=== PATIENT | male | born 1960 | race Caucasian/White ===

== ENCOUNTER 2024-08-18 08:45 | Outpatient (CLI) | payer OTHER | END 2024-08-18 08:46 | disposition home or self-care (01) | LOC: PET 08:45 | PROVIDERS: ATTEND Internal Medicine | DX: R91.8 Other nonspecific abnormal finding of lung field (principal); R59.0 Localized enlarged lymph nodes | CPT/HCPCS: 78815; A9552 ==

== ENCOUNTER 2024-08-20 14:02 | Emergency (ER) | payer OTHER | END 2024-08-20 16:25 | disposition home or self-care (01) | LOC: ERS 14:02 | DX: R04.2 Hemoptysis (principal); C34.90 Malignant neoplasm of unspecified part of unspecified bronchus or lung; I25.2 Old myocardial infarction; I10 Essential (primary) hypertension; J44.9 Chronic obstructive pulmonary disease, unspecified; F17.210 Nicotine dependence, cigarettes, uncomplicated | CPT/HCPCS: 99284 ==

== ENCOUNTER 2024-08-22 09:56 | Day surgery (SDC) | payer OTHER ==
[2024-08-21 11:12] VITALS: BMI 23.0
[2024-08-22] MEDS ORDERED: Lidocaine 4% PF 5 ML AMP ONE (11:39)
[2024-08-22] MEDS ORDERED: Albuterol 2.5 MG (3 mL) NEB ONE (11:41)
[2024-08-22] MEDS ORDERED: Ipratropium/Albuterol 3 ML NEB ONE (11:41)
[2024-08-22] MEDS ORDERED: Ipratropium Bromide 2.5 ml Neb ONE (11:42)
[2024-08-22] MEDS ORDERED: Propofol 1,000 MG/100 ML VIAL IV ONE (11:55)
[2024-08-22] MEDS ORDERED: fentaNYL PF 100 MCG/2 ML SYRINGE ONE (12:07)
[2024-08-22] MEDS ORDERED: Midazolam HCl 2 mg/2 ml Vial ONE (12:08)
[2024-08-22] MEDS ORDERED: Rocuronium Bromide 10 MG/ML (10ML VIAL) ONE (12:08)
[2024-08-22] MEDS ORDERED: Lidocaine 1% PF 5 ML VIAL ONE (12:08)
[2024-08-22] MEDS ORDERED: PROPOFOL 20 ML ONE (12:08)
[2024-08-22] MEDS ORDERED: Tranexamic Acid 1,000 MG/10 ML VIAL FS SCH (12:30)
[2024-08-22] MEDS ORDERED: Dexamethasone 4 mg/ml Vial ONE (12:50)
[2024-08-22] MEDS ORDERED: SUGAMMADEX SODIUM 200 MG/2 ML VIAL ONE (12:50)
[2024-08-22] MEDS ORDERED: Ondansetron PF 4 MG/2 ML Vial ONE (12:50)
[2024-08-22] MEDS ORDERED: PHENYLEPHRINE-NS 100 MCG/ML 10 ML SYRINGE ONE ×2 (12:58→14:21)
== END 2024-08-22 16:33 | disposition home or self-care (01) ==
LOC: SDC 09:56
PROVIDERS: ATTEND Internal Medicine
PROC: 0B9G8ZX Drainage of Left Upper Lung Lobe, Via Natural or Artificial Opening Endoscopic, Diagnostic (ICD-10-PCS; principal; 2024-08-22)
PROC: 0BB88ZX Excision of Left Upper Lobe Bronchus, Via Natural or Artificial Opening Endoscopic, Diagnostic (ICD-10-PCS; principal; 2024-08-22)
DX: R91.8 Other nonspecific abnormal finding of lung field (principal); R59.9 Enlarged lymph nodes, unspecified; K00-K95 Diseases of the digestive system; I25.10 Atherosclerotic heart disease of native coronary artery without angina pectoris; E78.5 Hyperlipidemia, unspecified; Z87.891 Personal history of nicotine dependence; Z20.822 Contact with and (suspected) exposure to COVID-19
CPT/HCPCS: 87070; 87102; 87116; 87205; 87206; 88112; 88173; 88305; 88342; J1100; J2250; J2405; J2704; J7611; J7620; J7644

== ENCOUNTER 2024-09-12 16:12 | Inpatient (IN) | payer OTHER ==
[2024-09-12 17:12] LABS: Hematocrit 28.3 % (42.0-52.0); Hemoglobin 9.5 g/dL (14.0-18.0); Mean Corpuscular HGB CONC 33.6 g/dL (32.0-36.0); Mean Corpuscular Hemoglobin 29.7 pg (27.0-31.0); Mean Corpuscular Volume 88.4 fL (78.0-98.0); Mean Platelet Volume 8.9 fL (7.4-10.4); Platelet Count 609 10x3/uL (130-400); RBC Distribution Width 13.5 % (11.5-14.5)
[2024-09-12 17:29] LABS: ALT (SGPT) 13 U/L (8-55); AST (SGOT) 18 U/L (5-34); Albumin 2.6 g/dL (3.4-4.8); Alkaline Phosphatase 83 U/L (40-110); Anion Gap 13 mmol/L (10-20); BUN (Urea Nitrogen) 23 mg/dL (8.4-25.7); Bilirubin, Total 0.7 mg/dL (0.2-1.2); Calc. Creatinine Clearance 0 mL/min (70-130); Calcium 11.3 mg/dL (7.8-10.44); Carbon Dioxide 23 mmol/L (23-31); Chloride 100 mmol/L (98-107); Estimated GFR 58; Globulin 4.6 g/dL (2.4-3.5); Glucose 109 mg/dL (80-115); Magnesium 1.9 mg/dL (1.6-2.6); Potassium 4.3 mmol/L (3.5-5.1); Protein, Total 7.2 g/dL (5.8-8.1); Sodium 132 mmol/L (136-145)
[2024-09-12 17:31] LABS: Anisocytosis SLIGHT = 6-15 cells HPF (0-5); Band 5 % (5-11); Lymphocytes 2 % (21-51); Microcytosis SLIGHT = 6-15 cells HPF (0-5); Monocytes 8 % (0-10); Neutrophil 83 % (42-75); Ovalocytes SLIGHT = 2-5 cells HPF (0-1); Platelet Adequacy Comment Platelets Increased; Polychromasia SLIGHT = 2-3 cells HPF (0-2); Reactive Lymphocytes 2 % (0-10); Target Cells SLIGHT = 2-5 cells HPF (0-1); Vacuoles SLIGHT
[2024-09-12 17:49] LABS: Troponin I Less than 0.010 ng/mL (< 0.028)
[2024-09-12] MEDS ORDERED: Sodium Chloride 0.9% 100 ML ONE (18:18)
[2024-09-12] MEDS ORDERED: Cefepime 2 GM VIAL ONE (18:18)
[2024-09-12] MEDS ORDERED: Calcium Carbonate 500 MG ChewTAB PO PRN (19:00)
[2024-09-12] MEDS ORDERED: Ondansetron PF 4 MG/2 ML Vial IVP PRN (19:00)
[2024-09-12 20:20] VITALS: BMI 22.9
[2024-09-12] MEDS: Sodium Chloride 0.9% 1,000 ML IV SCH (21:28)
[2024-09-12] MEDS: Primidone 250 MG TAB PO SCH (21:29)
[2024-09-12] MEDS: Propranolol 60 MG TAB PO SCH (22:11)
[2024-09-12] MEDS: Vancomycin (BATCH) 2 GM in Premix 1 BAG IVPB SCH (23:18)
[2024-09-13 02:59] LABS: Legionella Urinary Ag Negative (Negative); Strep pneumo Urine Ag NEGATIVE (NEGATIVE)
[2024-09-13 05:28] LABS: #Basophils 0.14 10x3/uL (0.0-0.2); %Basophils 0.6 % (0.0-1.0); %Lymphocytes 9.5 % (21.0-51.0); %Monocytes 7.5 % (0.0-10.0); %Neutrophils 78.3 % (42.0-75.0); Hemoglobin 7.8 g/dL (14.0-18.0); Mean Corpuscular HGB CONC 32.5 g/dL (32.0-36.0); Mean Corpuscular Hemoglobin 29.7 pg (27.0-31.0); Mean Corpuscular Volume 91.3 fL (78.0-98.0); Platelet Count 558 10x3/uL (130-400); RBC Distribution Width 13.7 % (11.5-14.5); Red Blood Cell (RBC) Count 2.63 mill/uL (4.70-6.10)
[2024-09-13 05:43] LABS: ALT (SGPT) 8 U/L (8-55); AST (SGOT) 10 U/L (5-34); Albumin 2.1 g/dL (3.4-4.8); Alkaline Phosphatase 66 U/L (40-110); Anion Gap 10 mmol/L (10-20); BUN (Urea Nitrogen) 24 mg/dL (8.4-25.7); Bilirubin, Total 0.4 mg/dL (0.2-1.2); Calc. Creatinine Clearance 72 mL/min (70-130); Carbon Dioxide 24 mmol/L (23-31); Chloride 104 mmol/L (98-107); Estimated GFR 71; Globulin 3.6 g/dL (2.4-3.5); Glucose 109 mg/dL (80-115); Potassium 4.3 mmol/L (3.5-5.1); Protein, Total 5.7 g/dL (5.8-8.1); Sodium 134 mmol/L (136-145)
[2024-09-13 07:39] LABS: Vancomycin, Random 33.3 ug/mL (See Comment)
[2024-09-13] MEDS: Clopidogrel Bisulfate 75 MG TAB PO SCH (08:29)
[2024-09-13] MEDS: Enoxaparin 40 MG (0.4 mL) SYRINGE SC SCH (08:29)
[2024-09-13] MEDS: Aspirin Chewable 81 MG TAB PO SCH (08:29)
[2024-09-13] MEDS: Cefepime 2 GM in Sodium Chloride 0.9% 100 ML IVPB SCH ×2 (08:30→17:04)
[2024-09-13] MEDS ORDERED: Vancomycin HCl 750 MG in Sodium Chloride 0.9% 250 ML 250 ML IVPB SCH (10:00)
[2024-09-13] MEDS ORDERED: Vancomycin 1 GM in Premix 1 BAG IVPB SCH (12:00)
[2024-09-13 12:03] LABS: Bilirubin Negative (Negative); Blood, Urine Negative (Negative); CAUTI Indications for Culture Fever or rigors; Clarity Clear (Clear); Glucose, Urine (Dipstick) Normal (Negative); Ketone, Urine Negative (Negative); Leukocyte Negative Leu/uL (Negative); Nitrite Negative (Negative); Protein, Urine (Dipstick) Negative (Neg-Trace); RBC/HPF 0-3 HPF (0-3); Specific Gravity, Urine 1.013 (1.002-1.036); Squamous Epithelial 0-3 HPF (0-3); Urobilinogen Normal mg/dL (Less than 2); WBC/HPF None Seen HPF (0-3); pH, Urine 5.5 (5.0-9.0)
[2024-09-13 12:08] LABS: Bacteria/HPF Rare-Few HPF (None Seen)
[2024-09-13 12:09] LABS: Urine Culture Reflex No No
[2024-09-13] MEDS ORDERED: Iopamidol-370 76% 500 ML MDV (1 ML CHARGE) ONE (13:04)
[2024-09-14] MEDS: VANCOMYCIN 1.25 GM/250 ML BAG 1.25 GM in Premix 1 BAG IVPB SCH (01:07)
[2024-09-14 06:35] LABS: #Basophils 0.12 10x3/uL (0.0-0.2); %Basophils 0.5 % (0.0-1.0); %Lymphocytes 9.5 % (21.0-51.0); %Monocytes 8.1 % (0.0-10.0); Hematocrit 24.1 % (42.0-52.0); Hemoglobin 7.8 g/dL (14.0-18.0); Mean Corpuscular HGB CONC 32.4 g/dL (32.0-36.0); Mean Corpuscular Hemoglobin 28.9 pg (27.0-31.0); Mean Corpuscular Volume 89.3 fL (78.0-98.0); Mean Platelet Volume 8.9 fL (7.4-10.4); Platelet Count 548 10x3/uL (130-400); RBC Distribution Width 13.7 % (11.5-14.5)
[2024-09-14 06:48] LABS: ALT (SGPT) 8 U/L (8-55); AST (SGOT) 11 U/L (5-34); Alkaline Phosphatase 62 U/L (40-110); Anion Gap 11 mmol/L (10-20); BUN (Urea Nitrogen) 19 mg/dL (8.4-25.7); Bilirubin, Total 0.4 mg/dL (0.2-1.2); Calc. Creatinine Clearance 85 mL/min (70-130); Calcium 9.2 mg/dL (7.8-10.44); Carbon Dioxide 21 mmol/L (23-31); Chloride 101 mmol/L (98-107); Estimated GFR 87; Globulin 3.5 g/dL (2.4-3.5); Glucose 104 mg/dL (80-115); Potassium 3.9 mmol/L (3.5-5.1); Protein, Total 5.5 g/dL (5.8-8.1); Sodium 129 mmol/L (136-145)
[2024-09-14] MEDS ORDERED: Moisturizing Cream (Eucerin) 113 GM JAR TOP PRN (08:07)
[2024-09-14] MEDS: Piperacillin/Tazobactam 3.375 GM in Sodium Chloride 0.9% 100 ML IVPB SCH ×2 (10:39→13:03)
[2024-09-14] MEDS: Ipratropium/Albuterol 3 ML NEB NEB SCH (11:55)
[2024-09-14] MEDS ORDERED: Piperacillin/Tazobactam 4.5 GM in Sodium Chloride 0.9% 100 ML IVPB SCH (12:00)
[2024-09-15] MEDS: Vancomycin (BATCH) 1.5 GM in Premix 1 BAG IVPB SCH (00:52)
[2024-09-15 05:31] LABS: #Basophils 0.12 10x3/uL (0.0-0.2); %Basophils 0.6 % (0.0-1.0); %Eosinophils 3.8 % (0.0-10.0); %Lymphocytes 10.4 % (21.0-51.0); %Monocytes 7.7 % (0.0-10.0); %Neutrophils 76.4 % (42.0-75.0); Hematocrit 24.2 % (42.0-52.0); Hemoglobin 7.9 g/dL (14.0-18.0); Mean Corpuscular HGB CONC 32.6 g/dL (32.0-36.0); Mean Corpuscular Hemoglobin 29.2 pg (27.0-31.0); Mean Corpuscular Volume 89.3 fL (78.0-98.0); Mean Platelet Volume 8.8 fL (7.4-10.4); Platelet Count 554 10x3/uL (130-400); Red Blood Cell (RBC) Count 2.71 mill/uL (4.70-6.10)
[2024-09-15 05:47] LABS: Vancomycin, Random 23.5 ug/mL (See Comment)
[2024-09-15 05:48] LABS: ALT (SGPT) 10 U/L (8-55); AST (SGOT) 14 U/L (5-34); Alkaline Phosphatase 64 U/L (40-110); Anion Gap 11 mmol/L (10-20); BUN (Urea Nitrogen) 15 mg/dL (8.4-25.7); Bilirubin, Total 0.4 mg/dL (0.2-1.2); Calc. Creatinine Clearance 87 mL/min (70-130); Carbon Dioxide 21 mmol/L (23-31); Chloride 100 mmol/L (98-107); Estimated GFR 89; Globulin 3.6 g/dL (2.4-3.5); Glucose 106 mg/dL (80-115); Potassium 3.8 mmol/L (3.5-5.1); Protein, Total 5.6 g/dL (5.8-8.1); Sodium 128 mmol/L (136-145)
[2024-09-15] MEDS: Acetaminophen 325 MG TAB PO PRN (08:14)
[2024-09-15] MEDS: Senokot S 8.6-50 MG TAB PO PRN (12:47)
[2024-09-15 18:09] LABS: Anion Gap 10 mmol/L (10-20); BUN (Urea Nitrogen) 15 mg/dL (8.4-25.7); Calc. Creatinine Clearance 82 mL/min (70-130); Calcium 8.9 mg/dL (7.8-10.44); Carbon Dioxide 24 mmol/L (23-31); Chloride 100 mmol/L (98-107); Estimated GFR 83; Glucose 110 mg/dL (80-115); Potassium 3.8 mmol/L (3.5-5.1); Sodium 130 mmol/L (136-145)
[2024-09-16 05:40] LABS: #Basophils 0.15 10x3/uL (0.0-0.2); %Basophils 0.6 % (0.0-1.0); %Lymphocytes 8.2 % (21.0-51.0); %Monocytes 7.4 % (0.0-10.0); %Neutrophils 79.7 % (42.0-75.0); Hematocrit 23.6 % (42.0-52.0); Hemoglobin 7.7 g/dL (14.0-18.0); Mean Corpuscular HGB CONC 32.6 g/dL (32.0-36.0); Mean Corpuscular Hemoglobin 28.6 pg (27.0-31.0); Mean Corpuscular Volume 87.7 fL (78.0-98.0); Platelet Count 595 10x3/uL (130-400); RBC Distribution Width 14.1 % (11.5-14.5); Red Blood Cell (RBC) Count 2.69 mill/uL (4.70-6.10)
[2024-09-16 05:56] LABS: ALT (SGPT) 13 U/L (8-55); AST (SGOT) 16 U/L (5-34); Alkaline Phosphatase 67 U/L (40-110); Anion Gap 11 mmol/L (10-20); BUN (Urea Nitrogen) 14 mg/dL (8.4-25.7); Bilirubin, Total 0.5 mg/dL (0.2-1.2); Calc. Creatinine Clearance 77 mL/min (70-130); Calcium 9.4 mg/dL (7.8-10.44); Carbon Dioxide 23 mmol/L (23-31); Chloride 101 mmol/L (98-107); Estimated GFR 78; Globulin 3.8 g/dL (2.4-3.5); Glucose 106 mg/dL (80-115); Potassium 4.1 mmol/L (3.5-5.1); Protein, Total 5.8 g/dL (5.8-8.1); Sodium 131 mmol/L (136-145)
[2024-09-17 05:13] LABS: #Basophils 0.15 10x3/uL (0.0-0.2); %Basophils 0.6 % (0.0-1.0); %Lymphocytes 8.1 % (21.0-51.0); %Monocytes 6.6 % (0.0-10.0); %Neutrophils 79.7 % (42.0-75.0); Hematocrit 24.5 % (42.0-52.0); Mean Corpuscular HGB CONC 32.7 g/dL (32.0-36.0); Mean Corpuscular Hemoglobin 29.1 pg (27.0-31.0); Mean Corpuscular Volume 89.1 fL (78.0-98.0); Mean Platelet Volume 8.9 fL (7.4-10.4); Platelet Count 610 10x3/uL (130-400); RBC Distribution Width 14.2 % (11.5-14.5); Red Blood Cell (RBC) Count 2.75 mill/uL (4.70-6.10)
[2024-09-17 05:27] LABS: ALT (SGPT) 14 U/L (8-55); AST (SGOT) 12 U/L (5-34); Albumin 2.1 g/dL (3.4-4.8); Alkaline Phosphatase 75 U/L (40-110); Anion Gap 12 mmol/L (10-20); BUN (Urea Nitrogen) 16 mg/dL (8.4-25.7); Bilirubin, Total 0.4 mg/dL (0.2-1.2); Calc. Creatinine Clearance 78 mL/min (70-130); Calcium 9.4 mg/dL (7.8-10.44); Carbon Dioxide 22 mmol/L (23-31); Chloride 100 mmol/L (98-107); Estimated GFR 78; Globulin 3.2 g/dL (2.4-3.5); Glucose 99 mg/dL (80-115); Potassium 4.5 mmol/L (3.5-5.1); Protein, Total 5.3 g/dL (5.8-8.1); Sodium 129 mmol/L (136-145)
[2024-09-17 05:29] LABS: Vancomycin, Random 36.2 ug/mL (See Comment)
[2024-09-17] MEDS: Arformoterol 15 MCG/2 ML NEB NEB SCH (09:00)
[2024-09-18 05:55] LABS: #Basophils 0.13 10x3/uL (0.0-0.2); %Basophils 0.6 % (0.0-1.0); %Eosinophils 3.5 % (0.0-10.0); %Lymphocytes 9.4 % (21.0-51.0); %Monocytes 6.5 % (0.0-10.0); Hematocrit 25.7 % (42.0-52.0); Hemoglobin 8.5 g/dL (14.0-18.0); Mean Corpuscular HGB CONC 33.1 g/dL (32.0-36.0); Mean Corpuscular Hemoglobin 29.5 pg (27.0-31.0); Mean Corpuscular Volume 89.2 fL (78.0-98.0); Mean Platelet Volume 8.8 fL (7.4-10.4); Platelet Count 599 10x3/uL (130-400); RBC Distribution Width 14.2 % (11.5-14.5); Red Blood Cell (RBC) Count 2.88 mill/uL (4.70-6.10)
[2024-09-18 06:14] LABS: ALT (SGPT) 14 U/L (8-55); AST (SGOT) 14 U/L (5-34); Alkaline Phosphatase 69 U/L (40-110); Anion Gap 12 mmol/L (10-20); BUN (Urea Nitrogen) 17 mg/dL (8.4-25.7); Bilirubin, Total 0.4 mg/dL (0.2-1.2); Calc. Creatinine Clearance 78 mL/min (70-130); Calcium 9.7 mg/dL (7.8-10.44); Carbon Dioxide 21 mmol/L (23-31); Chloride 100 mmol/L (98-107); Estimated GFR 78; Globulin 3.8 g/dL (2.4-3.5); Glucose 100 mg/dL (80-115); Potassium 4.2 mmol/L (3.5-5.1); Protein, Total 5.8 g/dL (5.8-8.1); Sodium 129 mmol/L (136-145)
[2024-09-18] MEDS: Amoxicillin/Potassium Clav 875 MG TAB PO SCH (20:46)
[2024-09-18] MEDS: Doxycycline 100 MG CAP PO SCH (20:46)
[2024-09-19 06:06] LABS: #Basophils 0.14 10x3/uL (0.0-0.2); %Basophils 0.7 % (0.0-1.0); %Eosinophils 3.3 % (0.0-10.0); %Lymphocytes 8.5 % (21.0-51.0); %Monocytes 6.7 % (0.0-10.0); %Neutrophils 79.9 % (42.0-75.0); Hematocrit 23.3 % (42.0-52.0); Hemoglobin 7.7 g/dL (14.0-18.0); Mean Corpuscular Hemoglobin 29.3 pg (27.0-31.0); Mean Corpuscular Volume 88.6 fL (78.0-98.0); Mean Platelet Volume 8.9 fL (7.4-10.4); Platelet Count 619 10x3/uL (130-400); RBC Distribution Width 14.1 % (11.5-14.5); Red Blood Cell (RBC) Count 2.63 mill/uL (4.70-6.10)
[2024-09-19 06:36] LABS: Anion Gap 12 mmol/L (10-20); BUN (Urea Nitrogen) 15 mg/dL (8.4-25.7); Calc. Creatinine Clearance 83 mL/min (70-130); Calcium 9.7 mg/dL (7.8-10.44); Carbon Dioxide 24 mmol/L (23-31); Chloride 98 mmol/L (98-107); Estimated GFR 85; Glucose 101 mg/dL (80-115); Potassium 4.1 mmol/L (3.5-5.1); Sodium 130 mmol/L (136-145)
[2024-09-19 10:01] LABS: Iron 16 ug/dL (65-175); Iron Binding Capacity, Total 130 mcg/dL (261-462)
[2024-09-19 10:55] VITALS: BMI 22.9
[2024-09-19] MEDS: Sodium Chloride 0.9% 250 ML 250 ML IV SCH (17:48)
[2024-09-19] MEDS: Albumin 25% 25 GM (100 mL) BOT IVPB SCH (18:02)
[2024-09-19 18:41] LABS: Anion Gap 13 mmol/L (10-20); BUN (Urea Nitrogen) 17 mg/dL (8.4-25.7); Calc. Creatinine Clearance 98 mL/min (70-130); Calcium 9.8 mg/dL (7.8-10.44); Carbon Dioxide 21 mmol/L (23-31); Chloride 99 mmol/L (98-107); Estimated GFR 98; Glucose 115 mg/dL (80-115); Potassium 4.1 mmol/L (3.5-5.1); Sodium 129 mmol/L (136-145)
[2024-09-19 18:48] LABS: Troponin I Less than 0.010 ng/mL (< 0.028)
[2024-09-19] MEDS: Sodium Chloride 0.9% 1,000 ML IV SCH (19:55)
[2024-09-20] MEDS ORDERED: Multivitamin W/ Minerals 1 TAB ONE (08:54)
[2024-09-20] MEDS ORDERED: Doxycycline 100 MG CAP ONE ×2 (08:54→21:50)
[2024-09-20] MEDS ORDERED: Amoxicillin/Potassium Clav 875 MG TAB ONE ×2 (08:54→21:50)
[2024-09-20] MEDS ORDERED: Clopidogrel Bisulfate 75 MG TAB ONE (08:54)
[2024-09-20] MEDS ORDERED: Primidone 250 MG TAB ONE ×2 (08:54→21:50)
[2024-09-20] MEDS ORDERED: Enoxaparin 40 MG (0.4 mL) SYRINGE ONE (08:54)
[2024-09-20] MEDS ORDERED: Aspirin Chewable 81 MG TAB ONE (08:54)
[2024-09-21] MEDS ORDERED: Multivitamin W/ Minerals 1 TAB ONE (09:10)
[2024-09-21] MEDS ORDERED: Clopidogrel Bisulfate 75 MG TAB ONE (09:10)
[2024-09-21] MEDS ORDERED: Doxycycline 100 MG CAP ONE (09:10)
[2024-09-21] MEDS ORDERED: Amoxicillin/Potassium Clav 875 MG TAB ONE (09:10)
[2024-09-21] MEDS ORDERED: Sodium Chloride 1 GM TAB ONE (09:10)
[2024-09-21] MEDS ORDERED: Enoxaparin 40 MG (0.4 mL) SYRINGE ONE (09:10)
[2024-09-21] MEDS ORDERED: Aspirin Chewable 81 MG TAB ONE (09:10)
[2024-09-21] MEDS ORDERED: Primidone 250 MG TAB ONE (09:10)
[2024-09-21] MEDS: Multivitamin W/ Minerals 1 TAB PO SCH (15:51)
[2024-09-22 06:14] LABS: #Basophils 0.12 10x3/uL (0.0-0.2); %Basophils 0.6 % (0.0-1.0); %Eosinophils 2.8 % (0.0-10.0); %Lymphocytes 9.4 % (21.0-51.0); %Monocytes 6.9 % (0.0-10.0); %Neutrophils 79.5 % (42.0-75.0); Hematocrit 23.4 % (42.0-52.0); Hemoglobin 7.7 g/dL (14.0-18.0); Mean Corpuscular HGB CONC 32.9 g/dL (32.0-36.0); Mean Corpuscular Hemoglobin 28.8 pg (27.0-31.0); Mean Corpuscular Volume 87.6 fL (78.0-98.0); Mean Platelet Volume 8.9 fL (7.4-10.4); Platelet Count 651 10x3/uL (130-400); RBC Distribution Width 14.3 % (11.5-14.5); Red Blood Cell (RBC) Count 2.67 mill/uL (4.70-6.10)
[2024-09-22 07:01] LABS: Anion Gap 11 mmol/L (10-20); BUN (Urea Nitrogen) 17 mg/dL (8.4-25.7); Calc. Creatinine Clearance 84 mL/min (70-130); Calcium 10.5 mg/dL (7.8-10.44); Carbon Dioxide 24 mmol/L (23-31); Chloride 103 mmol/L (98-107); Estimated GFR 86; Glucose 106 mg/dL (80-115); Potassium 4.2 mmol/L (3.5-5.1); Sodium 134 mmol/L (136-145)
[2024-09-22] MEDS: Sodium Chloride 1 GM TAB PO SCH (14:40)
[2024-09-22] MEDS: Sodium Chloride 1 GM TAB ONE ×2 (14:40)
[2024-09-22 14:55] LABS: Anion Gap 13 mmol/L (10-20); BUN (Urea Nitrogen) 17 mg/dL (8.4-25.7); Calc. Creatinine Clearance 89 mL/min (70-130); Calcium 10.6 mg/dL (7.8-10.44); Carbon Dioxide 24 mmol/L (23-31); Chloride 101 mmol/L (98-107); Estimated GFR 92; Glucose 97 mg/dL (80-115); Potassium 4.1 mmol/L (3.5-5.1); Sodium 134 mmol/L (136-145)
[2024-09-22 18:42] VITALS: BP 95/63; TEMP 99.6
[2024-09-22 18:45] LABS: #Basophils 0.13 10x3/uL (0.0-0.2); %Basophils 0.6 % (0.0-1.0); %Eosinophils 2.7 % (0.0-10.0); %Lymphocytes 9.3 % (21.0-51.0); %Monocytes 7.8 % (0.0-10.0); %Neutrophils 78.6 % (42.0-75.0); Hemoglobin 7.8 g/dL (14.0-18.0); Mean Corpuscular HGB CONC 32.5 g/dL (32.0-36.0); Mean Corpuscular Hemoglobin 28.9 pg (27.0-31.0); Mean Corpuscular Volume 88.9 fL (78.0-98.0); Mean Platelet Volume 9.1 fL (7.4-10.4); Platelet Count 666 10x3/uL (130-400); RBC Distribution Width 14.1 % (11.5-14.5)
== END 2024-09-22 18:36 | DRG 194 ==
LOC: SUATTDRO 16:12 → ERS 16:12 → T4-A 18:18
PROVIDERS: ADMIT Family Medicine; ATTEND Family Medicine
PROC: 30233J1 Transfusion of Nonautologous Serum Albumin into Peripheral Vein, Percutaneous Approach (ICD-10-PCS; principal; 2024-09-19)
DX: J18.9 Pneumonia, unspecified organism (principal); C34.12 Malignant neoplasm of upper lobe, left bronchus or lung; E22.2 Syndrome of inappropriate secretion of antidiuretic hormone; J44.0 Chronic obstructive pulmonary disease with (acute) lower respiratory infection; E46 Unspecified protein-calorie malnutrition; I25.10 Atherosclerotic heart disease of native coronary artery without angina pectoris; E78.5 Hyperlipidemia, unspecified; E86.0 Dehydration; D63.0 Anemia in neoplastic disease; E83.52 Hypercalcemia; I95.1 Orthostatic hypotension; I25.2 Old myocardial infarction; Z95.5 Presence of coronary angioplasty implant and graft; Z90.49 Acquired absence of other specified parts of digestive tract; Z87.891 Personal history of nicotine dependence; Z68.23 Body mass index [BMI] 23.0-23.9, adult
CPT/HCPCS: 36415; 36416; 71045; 71260; 80048; 80053; 80202; 81001; 82728; 83540; 83550; 83605; 83735; 83880; 83930; 83935; 84134; 84145; 84300; 84443; 84484; 85025; 85046; 85060; 87040; 87081; 87428; 87449; 87899; 93005; 94640; 96365; 97139; J0692; J1650; J2543; J3370; J7030; J7050; J7620; P9047; Q9967